=== PATIENT | male | born 1990 | race American Indian/Alaskan Native ===

== ENCOUNTER 2019-10-06 00:22 | Emergency (ER) | payer SELFPAY ==
[2019-10-06 00:35] VITALS: BP 163/112
== END 2019-10-06 01:57 | disposition left against medical advice (07) ==
LOC: ED 00:22
DX: R07.9 Chest pain, unspecified (principal); Z53.21 Procedure and treatment not carried out due to patient leaving prior to being seen by health care provider
CPT/HCPCS: 93005; 93010